=== PATIENT | male | born 1965 | race Caucasian/White ===

== ENCOUNTER 2020-04-11 09:15 | Outpatient (RCR) | payer BC, SELFPAY | END 2020-06-03 23:59 | disposition home or self-care (01) | LOC: ANHDMC 09:15 | PROVIDERS: PCP Emergency Medicine; Visit Provider Emergency Medicine | DX: E11.22 Type 2 diabetes mellitus with diabetic chronic kidney disease (principal); N18.9 Chronic kidney disease, unspecified; Z71.89 Other specified counseling | CPT/HCPCS: G0108 ==

== ENCOUNTER 2022-05-01 12:38 | Outpatient (CLI) | payer BC, SELFPAY ==
--- NOTE | ~2022-05-01 | XR_ITS ---
EXAMINATION: XR chest 2V 05/01/2022 12:59 INDICATION: End-stage renal disease PROCEDURE: 2 views chest COMPARISON: No prior studies for comparison. FINDINGS: The lungs are clear. The cardiomediastinal silhouette is within normal limits. There are no pleural effusions. There is no pneumothorax suspected. IMPRESSION: 1: NO ACUTE CARDIOPULMONARY DISEASE. Reviewed, dictated and finalized at location A.
[2022-05-01 14:48] LABS: Hepatitis B Core IgM Result Negative (Negative)
== END 2022-05-01 12:39 | disposition home or self-care (01) ==
PROVIDERS: PCP Internal Medicine
DX: N18.6 End stage renal disease (principal)
CPT/HCPCS: 36415; 71046; 86705